=== PATIENT | male | born 1965 | race African-American/Black ===

== ENCOUNTER 2020-08-29 15:57 | Emergency (ER) | payer OTHER ==
[~2020-08-29] VITALS: Ht 180.3 cm; Wt 97.7 kg
[2020-08-29] MEDS ORDERED: METF10004 PO (16:04)
[2020-08-29] MEDS ORDERED: ASPI1CHW3 PO (16:04)
[2020-08-29] MEDS ORDERED: ASPE4PAD TOP (16:54)
[2020-08-29] MEDS ORDERED: ROBA750T4 PO (16:54)
[2020-08-29] MEDS ORDERED: LIDOCAINE 5% (LIDODERM) PATCH TD ONE (16:55)
[2020-08-29] MEDS ORDERED: KETOROLAC 60MG 2ML VIAL IM ONE (16:55)
[2020-08-29] MEDS ORDERED: methocarbamoL 750 MG TAB PO ONE (16:55)
[2020-08-29 17:25] VITALS: BP 140/93
[2020-08-29] MEDS ORDERED: **NOTE PATIENT COMMENT** MISC XX SCH (21:00)
== END 2020-08-29 17:28 | disposition home or self-care (01) ==
LOC: M ED 15:57
DX: M54.5 Low back pain (principal); G89.29 Other chronic pain; E11.9 Type 2 diabetes mellitus without complications; Z79.84 Long term (current) use of oral hypoglycemic drugs; Z79.82 Long term (current) use of aspirin
CPT/HCPCS: 96372; 99283; J1885